=== PATIENT | female | born 1965 | race Caucasian/White ===

== ENCOUNTER → 2016-05-10 | Outpatient (CLI) | payer OTHER ==
--- NOTE | 2016-05-10 09:58 | MA ---
Diagnostic Digital Left Mammogram History: Evaluate lymph node with associated calcification outer left breast. Comparison: Screening mammogram April 04, 2016, January 2014, January 2012 and June 2010. Technique: A true lateral view and 2 spot views of the left breast. Breast Density: C Findings: The macrocalcifications either in or immediately adjacent to a nodule in the far outer left breast are confirmed. On the recent tomosynthesis the calcifications appear to be intimately associa paul within the nodule. Impression: Further imaging with ultrasound which we will perform shortly. BI-RADS 0. Additional imaging required..
--- NOTE | 2016-05-10 10:47 | US ---
Left Breast Ultrasound History: Small nodule with developing calcifications outer left breast Comparison: Diagnostic mammogram earlier Technique: I first performed a directed physical examination. This was followed by ultrasound exam with a high frequency linear transducer. Findings: Physical examination of the outer left breast is negative. On ultrasound there is a microlo bulated somewhat irregularly marginated hypoechoic nodule with internal calcification that measures a pproximately 1 cm in maximum diameter.The nodule is at the 2:00 radial, 9 cm from the nipple. Impression: Correlating to the mammographic abnormality is a suspicious nodule at the 2:00 radial, 9 cm from the nipple. Recommendation: Ultrasound directed vacuum assisted core biopsy for histologic analysis. Results and recommendation were discussed with the patient in detail who will schedule this after her cross-country skiing [place]hut trip. She was given information about scheduling this procedure. BI-RADS 4. Suspicious. A message was left for Bina Dumas at 10:46 AM.
== END ==
LOC: FIMAGING 09:12
PROVIDERS: ATTEND Obstetrics & Gynecology
DX: N63 Unspecified lump in breast (principal); R92.0 Mammographic microcalcification found on diagnostic imaging of breast
CPT/HCPCS: G0206

== ENCOUNTER → 2016-05-27 | Outpatient (CLI) | payer OTHER ==
[~2016-05-27] MED LIST: THROMBIN (RECOMBINANT) 5,000 UNIT VIAL TP ONE
--- NOTE | 2016-05-27 17:52 | US ---
Ultrasound-Guided Vacuum-Assisted Core Biopsy of the Left Breast Indication: Solid nodule upper outer left breast. Comparison: Diagnostic mammograms and ultrasound dated May 10, 2016. Crosscutting Measure #226: Current tobacco user: No. Consent: The procedure, risks, and benefits were discussed with the patient. She agreed to proceed and signed the consent form. Technique: The 1-cm nodule in the upper outer left breast 2 o'clock position 9 cm from the nipple wa s localized with a preprocedure ultrasound. A lateral to medial trajectory was selected. The skin w as marked, cleaned with ChloraPrep, and sterilely draped. The skin and soft tissues were anesthetize d with 1% lidocaine and bupivacaine. Through a 2-mm skin evan, a 12-gauge Suros needle was advanced along the undersurface of the lesion. Six vacuum-assisted core biopsy samples were obtained. A smal l remnant of the nodule persisted at the end of the exam. A SecurMark clip was deployed, the needle was removed, and pressure was applied to the biopsy site for 10 minutes. No significant bleeding or complication was incurred. Impression: Successful ultrasound-guided core biopsy of 1-cm nodule upper outer left breast 2 o'cloc k position.. Plan: Postbiopsy mammograms.
--- NOTE | 2016-05-27 18:14 | MA ---
Left diagnostic mammogram Indication: Evaluate clip deployment following ultrasound-guided core biopsy. Comparison: Screening and diagnostic mammograms dated March 2016 and April 2016. Findings: The biopsy clip is along the lateral margin of the biopsy nodule in the upper-outer left br east. The biopsied nodule is partially obscured by injected lidocaine. Impression: 1. Good correlation of nodular asymmetry and ultrasound-guided core biopsy. 2. Clip resides along the lateral margin of the biopsied nodule. Plan: Pending histologic results.
== END ==
LOC: FIMAGING 12:55
PROVIDERS: ATTEND Obstetrics & Gynecology
PROC: 0HBU3ZX Excision of Left Breast, Percutaneous Approach, Diagnostic (ICD-10-PCS; principal; 2016-05-27)
DX: D24.2 Benign neoplasm of left breast (principal)
CPT/HCPCS: G0206

== ENCOUNTER → 2016-07-29 | Outpatient (CLI) | payer OTHER | LOC: FCPNEURO 21:30 | PROVIDERS: ATTEND Psychiatry & Neurology Sleep Medicine | DX: G47.33 Obstructive sleep apnea (adult) (pediatric) (principal); I49.8 Other specified cardiac arrhythmias ==

== ENCOUNTER → 2017-07-08 | Outpatient (CLI) | payer OTHER | LOC: FIMAGING 08:12 | PROVIDERS: ATTEND Nurse Practitioner Women's Health | DX: Z12.31 Encounter for screening mammogram for malignant neoplasm of breast (principal) ==

== ENCOUNTER → 2018-08-24 | Outpatient (CLI) | payer OTHER | LOC: FIMAGING 15:49 | PROVIDERS: ATTEND Nurse Practitioner Women's Health | DX: Z12.31 Encounter for screening mammogram for malignant neoplasm of breast (principal) ==